=== PATIENT | female | born 1965 | race Caucasian/White ===

== ENCOUNTER 2017-01-20 09:10 | Emergency (ER) | payer MEDICAID, MEDICARE, SELFPAY ==
--- NOTE | 2017-01-20 10:06 | RAD ---
THREE VIEWS LEFT ANKLE: COMPARISON: None. HISTORY: Slipped on the floor this morning with left ankle pain. FINDINGS: Three views of the left ankle show a fracture of the distal aspect of the fibula. There is a fractu re of the medial malleolus. There also appears to be a posterior malleolar fracture. Diffuse soft tissue swelling is seen. There is subluxation of the tibiotalar joint. IMPRESSION: Trimalleolar fracture subluxation of the ankle. POS: [facility]ACIE
== END 2017-01-20 10:40 | disposition short-term general hospital (02) ==
LOC: NAV ERS 09:10
DX: S82.852A Displaced trimalleolar fracture of left lower leg, initial encounter for closed fracture (principal); W18.40XA Slipping, tripping and stumbling without falling, unspecified, initial encounter
CPT/HCPCS: 29515